=== PATIENT | female | born 1995 | race Caucasian/White ===

== ENCOUNTER 2018-08-21 10:57 | Emergency (ER) | payer OTHER ==
[2018-08-21] MEDS ORDERED: NS 1,000 ML IV ONE (11:09)
[2018-08-21] MEDS ORDERED: ONDANSETRON 4 MG/2 ML VIAL IVP ONE (11:09)
[2018-08-21] MEDS ORDERED: KETOROLAC 30 MG/1 ML SDV IVP ONE (11:09)
--- NOTE | 2018-08-21 11:09 | EDPHY ---
H & P Stated Complaint: lflank and abd pain n/v Source: Patient Exam Limitations: No limitations - Personal History LMP (Females 10-55): 1-7 Days Ago Current Tetanus Diphtheria and Acellular Pertussis (TDAP): Yes - Medical/Surgical History Hx Asthma: No Hx Chronic Respiratory Disease: No Hx Diabetes: No Hx Cardiac Disease: No Hx Renal Disease: No Hx Cirrhosis: No Hx Alcoholism: No Hx HIV/AIDS: No Hx Splenectomy or Spleen Trauma: No Other PMH: denies - Social History Smoking Status: Never smoked Time Seen by Provider: 08/21/18 11:06 HPI/ROS: HPI: This is 23-year-old female presents with Chief Complaint: Flank and abdominal pain Location: Left flank/left lower quadrant abdominal Quality: Pain Duration: Starting at 8 a.m. This morning Signs and Symptoms: no fever, + nausea, + vomiting x 2, no hematemesis, no blood in stool, no abdominal bloating, no diarrhea, + back pain, no urinary symptoms, no vaginal bleeding/discharge, no indigestion, no chest pain, no shortness of breath Timing: Acute, constant Severity: Moderate to severe Context: Patient reports that she had her period last week, presents from urgent care with sudden onset around 8:00 a.m. This morning of left flank and left lower quadrant abdominal pain that is nonradiating in nature. The pain is described as constant, moderate to severe in intensity. It is accompanied by nausea and 2 episodes of vomiting. She also complains of some left lower back pain. Denies any urinary symptoms. LMP 1-7 days ago. Modifying Factors: Comment: ROS: A comprehensive 10 system review of systems is otherwise negative aside from elements mentioned in the history of present illness. MEDICAL/SURGICAL/SOCIAL HISTORY: Medical history: Generally healthy. Does not take any regular medications. Surgical history: Denies Social history: Student. Nonsmoker. Family history noncontributory. CONSTITUTIONAL: Appears uncomfortable but nontoxic-appearing young adult white female, awake and alert HEENT: Atraumatic and normocephalic, PERRL, EOMI. Nares patent; no rhinorrhea; no nasal mucosal edema. Tympanic membranes clear. Oropharynx clear, no exudate and moist pink mucosa. Airway patent. No lymphadenopathy. No meningismus. Cardiovascular: Normal S1/S2, regular rate, regular rhythm, without murmur rub or gallop. PULMONARY/CHEST: Symmetrical and nontender. Clear to auscultation bilaterally. Good air movement. No accessory muscle usage. ABDOMEN: Soft, nondistended, left flank and left lower quadrant reproducible tenderness, no rebound, no guarding, no peritoneal signs, no masses or organomegaly. Left CVAT. EXTREMITIES: 2/2 pulses, strength 5/5, no deformities, no clubbing, no cyanosis or edema. NEUROLOGICAL: no focal neuro deficits. GCS 15. SKIN: Warm and dry, no erythema. no rash. Good capillary refill. (Brooke Oswald) Constitutional: Initial Vital Signs Temperature (C) 37 C 08/21/18 11:02 Heart Rate 95 08/21/18 11:02 Respiratory Rate 20 08/21/18 11:02 Blood Pressure 117/101 H 08/21/18 11:02 O2 Sat (%) 100 08/21/18 11:02 O2 Delivery Mode Room Air Allergies/Adverse Reactions: No Known Allergies Allergy (Unverified 08/21/18 11:01) Home Medications: Medication Instructions Recorded Ondansetron Odt [Zofran Odt 4 mg 4 mg PO Q4 PRN #12 tab 08/21/18 (*)] oxyCODONE/APAP 5/325 [Percocet 1 - 2 tab PO Q4H PRN #12 tab 08/21/18 5/325 (*)] Medical Decision Making - Diagnostics Imaging Results: Imaging Impressions Abdomen/Pelvis CT 08/21/18 11:09 Impression: 1. 3.3 mm calculus distal left ureter at the ureterovesical junction with mild left hydronephrosis and hydroureter. Small nonobstructive bilateral nephrolithiasis. 2. A few calcifications are seen in the right adrenal gland which could be from prior infection or hemorrhage. No definite adrenal mass. Results called and discussed with Brooke Oswald on 08/21/2018, 12:03. Attention: This CT examination is specifically designed to evaluate patients who are clinically suspected of having acute obstructive uropathy. This examination does not use radiographic contrast, and as such, provides only a limited evaluation of the abdomen, pelvis and retroperitoneum. If there is further clinical suspicion for pathological conditions other than obstructive uropathy, a complete CT evaluation of the abdomen and pelvis utilizing intravenous, oral, and rectal contrast should be considered. ED Course/Re-evaluation: Vital signs reviewed and no systemic signs. IV access and laboratory studies obtained. Urinalysis and CT abdomen and pelvis scan without contrast to evaluate for stone, pyelonephritis Given 1 L normal saline, IV Toradol 30 mg, IV Dilaudid 0.5 mg, IV Zofran 4 mg Urine sample obtained and dark in color. 1140: Urinalysis shows 2+ blood, positive nitrites, 50-182 RBCs and 1+ bacteria ; high likelihood of stone 1155: labs reviewed. WBC 12K with left shift, creatinine 0.9, no electrolyte imbalance, no 1200: Called by radiologist that 3.3 mm stone at the left UVJ mild hydronephrosis and calcifications in the adrenal gland. Given Flomax. Reassessed patient who reports near complete relief of pain. Drinking liquids without difficulty. Mother at bedside reports that there is a family history of kidney stones. Given a strainer and urology follow-up. This patient was seen under the supervision of my secondary supervising physician. I evaluated care for this patient independently. Discussed this patient with Dr. Turner. (Brooke Oswald) Differential Diagnosis: Flank pain including but not limited to musculoskeletal causes, kidney stone, pyelonephritis, shingles, and intra-abdominal causes such as diverticulitis and appendicitis. (Brooke Oswald) - Data Points Laboratory Results: Laboratory Results 08/21/18 11:20 08/21/18 11:20 08/21/18 08/21/18 08/21/18 11:20 11:20 11:20 WBC RBC Hgb Hct MCV MCH MCHC RDW Plt Count MPV Neut % (Auto) Lymph % (Auto) [place] % (Auto) Eos % (Auto) Baso % (Auto) Nucleat RBC Rel Count Absolute Neuts (auto) Absolute Lymphs (auto) Absolute Monos (auto) Absolute Eos (auto) Absolute Basos (auto) Absolute Nucleated RBC Immature Gran % Immature Gran # Sodium 143 mEq/L mEq/L (135-145) Potassium 4.0 mEq/L mEq/L (3.3-5.0) Chloride 109 mEq/L mEq/L (97-110) Carbon Dioxide 22 mEq/l mEq/l (22-31) Anion Gap 12 mEq/L mEq/L (6-14) BUN 12 mg/dL mg/dL (7-23) Creatinine 0.9 mg/dL mg/dL (0.6-1.0) Estimated GFR > 60 Glucose 107 mg/dL H mg/dL (70-100) Calcium 10.1 mg/dL mg/dL (8.5-10.4) Lipase 43 IU/L IU/L (23-300) Beta HCG, Qual NEGATIVE Urine Color MIKHAIL Urine Appearance HAZY Urine pH 7.0 (5.0-7.5) Ur Specific [place] 1.027 (1.002-1.030) Urine Protein 1+ H (NEGATIVE) Urine Ketones NEGATIVE (NEGATIVE) Urine Blood 2+ H (NEGATIVE) Urine Nitrate POSITIVE H (NEGATIVE) Urine Bilirubin NEGATIVE (NEGATIVE) Urine Urobilinogen 4.0 EU H EU (0.2-1.0) Ur Leukocyte Esterase NEGATIVE (NEGATIVE) Urine RBC 50-182 /hpf H /hpf (0-3) Urine WBC 1-3 /hpf /hpf (0-3) Ur Epithelial Cells TRACE /lpf /lpf (NONE-1+) Urine Bacteria 1+ /hpf H /hpf (NONE SEEN) Urine Mucus 2+ /lpf H /lpf (NONE-1+) Urine Glucose NEGATIVE (NEGATIVE) 08/21/18 11:20 WBC 12.32 10^3/uL H 10^3/uL (3.80-9.50) RBC 4.87 10^6/uL 10^6/uL (4.18-5.33) Hgb 15.3 g/dL g/dL (12.6-16.3) Hct 44.3 % % (38.0-47.0) MCV 91.0 fL fL (81.5-99.8) MCH 31.4 pg pg (27.9-34.1) MCHC 34.5 g/dL g/dL (32.4-36.7) RDW 11.8 % % (11.5-15.2) Plt Count 300 10^3/uL 10^3/uL (150-400) MPV 9.1 fL fL (8.7-11.7) Neut % (Auto) 78.8 % H % (39.3-74.2) Lymph % (Auto) 15.3 % % (15.0-45.0) [place] % (Auto) 4.8 % % (4.5-13.0) Eos % (Auto) 0.4 % L % (0.6-7.6) Baso % (Auto) 0.3 % % (0.3-1.7) Nucleat RBC Rel Count 0.0 % % (0.0-0.2) Absolute Neuts (auto) 9.71 10^3/uL H 10^3/uL (1.70-6.50) Absolute Lymphs (auto) 1.88 10^3/uL 10^3/uL (1.00-3.00) Absolute Monos (auto) 0.59 10^3/uL 10^3/uL (0.30-0.80) Absolute Eos (auto) 0.05 10^3/uL 10^3/uL (0.03-0.40) Absolute Basos (auto) 0.04 10^3/uL 10^3/uL (0.02-0.10) Absolute Nucleated RBC 0.00 10^3/uL 10^3/uL (0-0.01) Immature Gran % 0.4 % % (0.0-1.1) Immature Gran # 0.05 10^3/uL 10^3/uL (0.00-0.10) Sodium Potassium Chloride Carbon Dioxide Anion Gap BUN Creatinine Estimated GFR Glucose Calcium Lipase Beta HCG, Qual Urine Color Urine Appearance Urine pH Ur Specific [place] Urine Protein Urine Ketones Urine Blood Urine Nitrate Urine Bilirubin Urine Urobilinogen Ur Leukocyte Esterase Urine RBC Urine WBC Ur Epithelial Cells Urine Bacteria Urine Mucus Urine Glucose Medications Given: Discontinued Medications Hydromorphone HCl (Dilaudid) 0.5 mg IVP EDNOW ONE Stop: 08/21/18 11:30 Last Admin: 08/21/18 11:31 Dose: 0.5 mg Sodium Chloride (Ns) 1,000 mls @ 0 mls/hr IV EDNOW ONE; Wide Open PRN Reason: Protocol Stop: 08/21/18 11:10 Last Admin: 08/21/18 11:23 Dose: 1,000 mls Ketorolac Tromethamine (Toradol) 30 mg IVP EDNOW ONE Stop: 08/21/18 11:10 Last Admin: 08/21/18 11:23 Dose: 30 mg Ondansetron HCl (Zofran) 4 mg IVP EDNOW ONE Stop: 08/21/18 11:10 Last Admin: 08/21/18 11:23 Dose: 4 mg Tamsulosin HCl (Flomax) 0.4 mg PO EDNOW ONE Stop: 08/21/18 12:02 Last Admin: 08/21/18 12:04 Dose: 0.4 mg Departure - Departure Disposition: Home, Routine, Self-Care Clinical Impression: Renal colic on left side, Ureterolithiasis Condition: Good Instructions: Renal Colic (ED), How to Strain Your Urine (ED), Ureteral Stones (ED), Kidney Stones in Children (ED) Additional Instructions: Consume a minimum of 8-10 glasses of water or electrolyte fluid replacement drinks that include Gatorade, Powerade, Pedialyte. Take Tylenol 650 mg every 4 hours and/or Ibuprofen 600 mg every 8 hours with food as needed for pain. Use Percocet every 6 hours as needed for severe/break through pain. Use Zofran every 4-6 hours as needed for nausea, vomiting. Do not use Tylenol and Percocet concomitantly. Strain all of your urine and keep your stone. Follow-up with Urology in the next 1-2 weeks. Referrals: Jadon Kirby MD [Medical Doctor] - As per Instructions Prescriptions: Ondansetron Odt [Zofran Odt 4 mg (*)] 4 mg PO Q4 PRN #12 tab PRN Reason: Nausea/Vomiting, Use 1st oxyCODONE/APAP 5/325 [Percocet 5/325 (*)] 1 - 2 tab PO Q4H PRN #12 tab PRN Reason: Pain, Severe
[2018-08-21] MEDS ORDERED: HYDROmorphONE/DILAUDID 2 MG/ML INJ IVP ONE (11:29)
[2018-08-21] MEDS ORDERED: HYDROmorphONE/DILAUDID 1 MG/ML INJ ONE (11:30)
[2018-08-21 11:32] LABS: PLATELET COUNT 300 10^3/uL (150-400)
[2018-08-21] MEDS ORDERED: TAMSULOSIN HCL 0.4 MG CAP PO ONE (12:01)
[2018-08-21 12:25] VITALS: BP 110/74
== END 2018-08-21 12:24 | disposition home or self-care (01) ==
DX: N13.2 Hydronephrosis with renal and ureteral calculous obstruction (principal); E86.9 Volume depletion, unspecified
CPT/HCPCS: 96374; J1170; J1885; J2405